=== PATIENT | female | born 1985 | race Caucasian/White ===

== ENCOUNTER 2017-01-25 10:14 | Emergency (ER) | payer OTHER ==
[~2017-01-25] VITALS: Ht 167.6 cm; Wt 57.2 kg
[~2017-01-25 10:14] MED LIST: BUPROPION HCL100 M3 PO; CLONAZEPAM0.5 M2 PO; CLONAZEPAM1 M2 PO; CYCLOBENZAPRINE10 M1 PO; ESCITALOPRAM OX20 MG PO; FLUTICASONE PRO16 GM NASB; IMITREX50 M1 PO; LYRICA150 M1 PO; MOBIC15 MG PO; MULTI-DAY VITA1 EACH PO; OXYCODONE-ACET1 EACH PO; PERCOCET 10-321 EACH PO; ROXICODONE5 M1 PO; TRAMADOL HCL50 M1 PO; TRAMADOL HCL50 MG PO; TRAZODONE HCL50 M1 PO; VALACYCLOVIR1000 MG PO; VIBRAMYCIN 100100 MG PO; ZOFRAN ODT4 M1 SL; ZOLPIDEM TARTRAT5 M1 PO
[2017-01-25 10:24] VITALS: BP 105/73
== END 2017-01-25 11:18 | disposition admitted as inpatient to this hospital (09) ==
LOC: ERH 10:14
DX: R10.9 Unspecified abdominal pain (principal)

== ENCOUNTER 2017-01-25 13:35 | Emergency (ER) | payer OTHER ==
[~2017-01-25] VITALS: Ht 167.6 cm; Wt 56.7 kg
--- NOTE | 2017-01-25 15:21 | ED GI/GU/ABDOMINAL COMPLAINT ---
History of Present Illness General Chief Complaint: Abdominal Pain/Flank Pain Stated Complaint: RUQ ABD PAIN Source: patient, old records Exam Limitations: no limitations Vital Signs & Intake/Output Vital Signs & Intake/Output ED Intake and Output 01/26 0000 01/25 1200 Intake Total Output Total Balance Patient 125 lb Weight Allergies Coded Allergies: No Known Allergies (04/23/16) Reconcile Medications Bupropion HCl (Bupropion HCl Sr) 100 MG TABLET.ER 1 TAB PO QAM MENTAL HEALTH (Reported) Clonazepam 1 MG TABLET 1 TAB PO TIDPRN PRN ANXIETY (Reported) Cyclobenzaprine HCl 10 MG TABLET 1 TAB PO TID PRN MUSCLE RELAXER (Reported) Fluticasone Propionate 16 GM SPRAY.SUSP 2 SPRAY NASB DAILY ALLERGIES ( Reported) Multivitamin (Multi-Day Vitamins) 1 EACH TABLET 1 TAB PO BID SUPPLEMENT ( Reported) Ondansetron (Zofran Odt) 4 MG TAB.RAPDIS 1 TAB SL TID Nausea and Vomiting Pregabalin (Lyrica) 150 MG CAPSULE 1 CAP PO BID FIBROMYALGIA (Reported) Sumatriptan Succinate (Imitrex) 50 MG TABLET 1 TAB PO AD PRN MIGRAINES ( Reported) Tramadol HCl 50 MG TABLET 1-2 TAB PO Q6H PRN FIBROMYALGIA (Reported) Trazodone HCl 50 MG TABLET 1 TAB PO PRN SLEEP (Reported) Valacyclovir HCl (Valacyclovir) 1,000 MG TABLET 1 TAB PO DAILY ANTIVIRAL ( Reported) Triage Note: PT WAS HERE EARLIER, BROUGHT BY HER FRIEND FOR RUQ PAIN, PTS FRIEN STATED THAT PT HAS A DRUG PROBLEM AND TOOK ALL MEDS OUT OF PTS BAG EARLIER AND LEFT WITH THEM DUE TO PT WAS TRYING TO TAKE THEM WHILE IN WAITING ROOM. PT COMPLAINS OF 10/10 RUQ PAIN AND STATES THAT SHE NEEDS IV DILAUDID DUE TOITS THE ONLY THING THAT WORKS FOR HER. PT LEFT EARLIER DUE TO SHE DID NOT WANT TO WAIT FOR ROOM. Triage Nurses Notes Reviewed? yes ? N Is pt currently ? No Onset: Gradual Duration: week(s):, constant Timing: recent history Quality/Severity: aching, mild, moderate Severity Numbers: 6 Location: epigastric Radiation: RUQ Activities at Onset: none No Modifying Factors: none Associated Symptoms: DENIES HPI: 31-year-old female with past history of cholecystectomy, chronic right upper quadrant pain and known history of dilated biliary duct for which she states she has not sought care or followed up as was recommended presents to the ER for evaluation complaining of persistent upper quadrant right sided epigastric pain. The patient was seen here earlier this week. She states on arrival "I am only here for one thing, the only thing that helps with this pain is IV Dilaudid" the patient appears to be intoxicated at this time discussed with her plan of care, and she has no other history of abdominal surgeries. No fever no chills no nausea no vomiting. She denies alcohol or other drug use. Triage note noted that the patient's friend took all of her pain medication after she attempted to take it in the waiting room area she then proceeded to leave the ER prior to being evaluated earlier this morning and came back for which she is now being seen. No difficulty tolerating eating or drinking (ARMANDO KAPADIA) Past History Travel History Traveled to [place] past 21 day No Medical History Any Pertinent Medical History? see below for history Neurological: NONE EENT: NONE Cardiovascular: NONE Respiratory: NONE Gastrointestinal: NONE Hepatic: NONE Renal: NONE Musculoskeletal: fibromyalgia Psychiatric: anxiety, depression, FIBROMYALGIA Endocrine: NONE Blood Disorders: NONE Cancer(s): NONE HOME ADMINISTRATOR/Reproductive: NONE History of CDIFF: No Surgical History Surgical History: cholecystectomy Psychosocial History What is your primary language Armenian Tobacco Use: Never used ETOH Use: denies use Illicit Drug Use: denies illicit drug use Family History Family History, If Any: MOTHER FH: diabetes mellitus Hx Contributory? No (ARMANDO KAPADIA) Review of Systems Review of Systems Constitutional: Reports: see HPI. Comments Review of systems: See HPI, All other systems negative. Constitutional, no chills no fever, no malaise HEENT: No visual changes no sore throat no congestion, Cardiovascular: No chest pain , no palpitation , Skin: no rashes, no change in skin Respiratory: No dyspnea no cough no sputum GI: No nausea no vomiting, no diarrhea, no bloating/constipation : No dysuria Muscle skeletal: No joint pain, , no back pain, no neck pain, Neurologic: No numbness no headache Psych: No stress Heme/endocrine: No bruising Immunology: No lymphadenopathy (ARMANDO KAPADIA) Physical Exam Physical Exam General Appearance: well developed/nourished, awake Gastrointestinal: soft, tenderness Comments: Well-developed well-nourished person in no acute distress HEENT: Normal EENT exam; PERRL, EOMI, HEAD is atraumatic. moist mucous membranes. Neck: Supple, normal range of motion Back:Full range of motion Cardiovascular: Regular rate and rhythms no murmurs rubs Respiratory: Chest nontender.There were no bony deformities, no asymmetry. No respiratory distress. Patient speaking in full complete sentences. Breath sounds clear to auscultation bilaterally: NO W/R/R Abdomen: Soft, nontender nondistended, no appreciable organomegaly. Normal bowel sounds. No rebound/guarding, No ascites. Extremity: No edema, full range of motion of extremities Neuro: Alert oriented x3, motor sensory normal, There were no obvious focal neurologic abnormalities. Skin: No appreciable rash on exposed skin, skin is warm and dry. No jaundice Psych: Mood and affect is normal, memory and judgment is normal. Core Measures ACS in differential dx? No Severe Sepsis Present: No Septic Shock Present: No (XIANG BINGHAM,ARMANDO) Progress Differential Diagnosis: biliary colic, bowel obstruction, diverticulitis, intrauterine , kidney stone, pancreatitis, peptic ulcer, PUD/GERD, perforated viscous, CHOLANGITIS, CHOLEDOCHOLITHIASIS Diagnostic Imaging: Viewed by Me: Ultrasound. Discussed w/RAD: Ultrasound. Radiology Impression: PATIENT: DANIELA LARA PRESENT AGE: 31 PATIENT ACCOUNT NO: [id number] : 87 LOCATION: [facility] ORDERING PHYSICIAN: ARMANDO BINGHAM SERVICE DATE: 01/25/17163 EXAM TYPE: US - US-LIMITED ABDOMEN EXAMINATION: US ABDOMEN LIMITED CLINICAL INFORMATION: Right upper quadrant abdominal pain.. COMPARISON: Right upper quadrant ultrasound abdomen 01/20/2016. MR abdomen 01/28/2016. CT scan abdomen pelvis 01/21/2017 TECHNIQUE: Real-time imaging of the right upper quadrant abdominal viscera. Color Doppler exam utilized. FINDINGS: PANCREAS: Normal. LIVER: Normal. The liver demonstrates normal size, contour and echogenicity. No focal lesion or intrahepatic biliary duct dilatation. GALLBLADDER: Status post cholecystectomy. COMMON BILE DUCT: Normal in caliber measuring 0.7 cm in diameter. This is unchanged since prior MR abdomen 01/28/2016. No stone identified in the visualized portions of the duct. RIGHT KIDNEY: Normal. No hydronephrosis. No renal calculi or focal parenchymal lesions. The kidney measures 10.5 cm in maximum dimension. FREE FLUID: None. IMPRESSION: No acute change right upper quadrant ultrasound. Status post cholecystectomy. CBD measures 0.7 cm in diameter which is unchanged since MR abdomen of 01/20/2016. No intrahepatic bile duct dilatation. DICTATED BY: SERGEY HERNANDEZ MD DATE/TIME DICTATED:01/25/171643 TERMINAL GAUGER:LESLEY DATE/TIME TRANSCRIBED:01/25/171643 CONFIDENTIAL, DO NOT COPY WITHOUT APPROPRIATE AUTHORIZATION. <Electronically signed in Other Vendor System> SIGNED BY: SERGEY HERNANDEZ MD 01/25/17 1733 Initial ED EKG: none (ARMANDO KAPADIA) Plan of Care: Orders Procedure Date/time Status URINE DRUG SCREEN FOR ER ONLY 01/25 1518 Complete ACETOMINOPHEN 01/25 1501 Complete LIPASE 01/25 1501 Complete ETHANOL 01/25 1501 Complete COMPREHENSIVE METABOLIC PANEL 01/25 1501 Complete CBC WITHOUT DIFFERENTIAL 01/25 1501 Complete AMYLASE 01/25 1501 Complete Laboratory Tests 01/25/17 1525: Urine Opiates Screen 162.00, Methadone Screen 48, Barbiturate Screen < 60, Ur Phencyclidine Scrn 6.50, Amphetamines Screen < 100, U Benzodiazepines Scrn 224 H, Urine Cocaine Screen < 50, Urine Cannabis Screen < 5.00 01/25/17 1515: Anion Gap 9, Estimated GFR > 60, BUN/Creatinine Ratio 11.4, Glucose 99, Calcium 8.8, Total Bilirubin 1.1, AST 529 H, ALT 403 H, Alkaline Phosphatase 188 H, Total Protein 6.8, Albumin 4.4, Globulin 2.4, Albumin/Globulin Ratio 1.8, Amylase 34, Lipase 66, CBC w Diff MAN DIFF ORDERED, RBC 4.11 L, MCV 93.7, MCH 32.8 H, RDW 12.4, MPV 7.5, Gran % 83.9 H, Lymphocytes % 7.5 L, Monocytes % 8.3, Eosinophils % 0.2, Basophils % 0.1, Absolute Granulocytes 2.7, Absolute Lymphocytes 0.2 L, Absolute Monocytes 0.3, Absolute Eosinophils 0, Absolute Basophils 0, Platelet Estimate DECREASED, Normocytic RBCs VERIFIED, Normochromic RBCs VERIFIED, PUBS MCHC 35.0, Acetaminophen < 10.0 L, Serum Alcohol < 10.0 Old records reviewed including the patient's CAT scan from over the weekend was reviewed ultrasound ordered case discussed with Dr. Saleh patient states that "I am only here for pain management I need IV Dilaudid" patient appears intoxicated discussed with her given her opiate level in her drug screen that she will not receive any narcotics here at this time we'll medicate her with IV Toradol which she is agreeing and willing to do at this time. Case discussed with Dr. Saleh regarding the patient's lab results. I spoke with the patient at length regarding all of her results her exam remains unremarkable she is afebrile in no white count elevation. LFTs are trending upwards I discussed with her only that she needs to have close follow-up with GI return precautions were discussed at least she feels comfortable with this plan CT ABD/PELVIS 01/16 IMPRESSION: Status post cholecystectomy. The common bile duct is dilated to 1.2 cm, increased from the prior MRCP 01/28/2016 at which time it measured 0.9 cm. No definite radiopaque obstructing choledocholithiasis seen. Consider ERCP or MRCP for further evaluation. (ARMANDO KAPADIA) Departure Departure Time of Disposition: 1737 Disposition: HOME OR SELF CARE Condition: Stable Clinical Impression Primary Impression: Transaminitis Secondary Impressions: Dilated bile duct Referrals: EARL SALCIDO,LORELEI SHEPHERD MD,HEATHER (PCP/Family) Additional Instructions: Follow-up with gastrioenterologist Dr. ELLIOTT as you'll need outpatient workup regarding her elevated liver tests and dilated bile.. [place] diet no fatty spicy greasy foods. Return if you have persistent fevers nausea vomiting yellowing of her skin or any other concerns. Departure Forms: Customer Survey General Discharge Information (ARMANDO KAPADIA) PA/HEALTHCARE PROJECT MANAGER Co-Sign Statement Statement: ED Attending supervision documentation- [] I saw and evaluated the patient. I have also reviewed all the pertinent lab results and diagnostic results. I agree with the findings and the plan of care as documented in the PA's/HEALTHCARE PROJECT MANAGER's documentation. [X] I have reviewed the ED Record and agree with the PA's/HEALTHCARE PROJECT MANAGER's documentation. [] Additions or exceptions (if any) to the PAs/HEALTHCARE PROJECT MANAGER's note and plan are summarized below: [] (TAI SALCIDO,CATHERINE)
[2017-01-25 15:26] LABS: ABSOLUTE BASOPHIL COUNT 0 /CUMM (0.0-0.2); ABSOLUTE EOSINOPHIL COUNT 0 /CUMM (0.0-0.7); ABSOLUTE GRANULOCYTE CT 2.7 /CUMM (1.4-6.5); ABSOLUTE LYMPH COUNT 0.2 /CUMM (1.2-3.4); ABSOLUTE MONOCYTE COUNT 0.3 /CUMM (0.10-0.60); BASOPHIL % 0.1 % (0.0-2.0); EOSINOPHIL % 0.2 % (0-5); GRANULOCYTE % 83.9 % (42.2-75.2); HEMATOCRIT 38.5 % (37-47); MEAN CORPUSCULAR HGB 32.8 PG (27.0-31.0); MEAN CORPUSCULAR VOLUME 93.7 FL (81.0-99.0); MEAN PLATELET VOLUME 7.5 FL (7.4-10.4); PLATELET COUNT 114 /CUMM (130-400); RBC DISTRIBUTION WIDTH 12.4 % (11.5-14.5); RED BLOOD CELL CT 4.11 /CUMM (4.20-5.40); WHITE BLOOD CELL COUNT 3.3 /CUMM (4.8-10.8)
--- NOTE | 2017-01-25 17:33 | ULTRASOUND REPORT ---
EXAMINATION: US ABDOMEN LIMITED CLINICAL INFORMATION: Right upper quadrant abdominal pain.. COMPARISON: Right upper quadrant ultrasound abdomen 01/20/2016. MR abdomen 01/28/2016. CT scan abdomen pelvis 01/21/2017 TECHNIQUE: Real-time imaging of the right upper quadrant abdominal viscera. Color Doppler exam utilized. FINDINGS: PANCREAS: Normal. LIVER: Normal. The liver demonstrates normal size, contour and echogenicity. No focal lesion or intrahepatic biliary duct dilatation. GALLBLADDER: Status post cholecystectomy. COMMON BILE DUCT: Normal in caliber measuring 0.7 cm in diameter. This is unchanged since prior MR abdomen 01/28/2016. No stone identified in the visualized portions of the duct. RIGHT KIDNEY: Normal. No hydronephrosis. No renal calculi or focal parenchymal lesions. The kidney measures 10.5 cm in maximum dimension. FREE FLUID: None. IMPRESSION: No acute change right upper quadrant ultrasound. Status post cholecystectomy. CBD measures 0.7 cm in diameter which is unchanged since MR abdomen of 01/20/2016. No intrahepatic bile duct dilatation.
[2017-01-25 17:41] VITALS: BP 116/84
== END 2017-01-25 18:11 ==
LOC: ERH 13:35
PROVIDERS: Physician Assistant Medical
DX: R74.0 Nonspecific elevation of levels of transaminase and lactic acid dehydrogenase [LDH] (principal); K83.8 Other specified diseases of biliary tract
CPT/HCPCS: 80307; 96374; G0480; J1885

== ENCOUNTER 2017-01-27 09:26 | Emergency (ER) | payer OTHER ==
[~2017-01-27] VITALS: Ht 167.6 cm; Wt 56.7 kg
--- NOTE | 2017-01-27 10:14 | ED GI/GU/ABDOMINAL COMPLAINT ---
History of Present Illness General Chief Complaint: Abdominal Pain/Flank Pain Stated Complaint: BIBA FOR ABD PAIN Source: patient, old records Exam Limitations: no limitations Vital Signs & Intake/Output Vital Signs & Intake/Output Vital Signs Date Time Temp Pulse Resp B/P B/P Pulse O2 O2 Flow FiO2 Mean Ox Delivery Rate 01/27 1140 96.2 98 22 116/81 94 Room Air 01/27 0940 96.4 95 20 117/83 100 Room Air Room Air Allergies Coded Allergies: No Known Allergies (04/23/16) Reconcile Medications Bupropion HCl (Bupropion HCl Sr) 100 MG TABLET.ER 1 TAB PO QAM MENTAL HEALTH (Reported) Clonazepam 1 MG TABLET 1 TAB PO TIDPRN PRN ANXIETY (Reported) Cyclobenzaprine HCl 10 MG TABLET 1 TAB PO TID PRN MUSCLE RELAXER (Reported) Fluticasone Propionate 16 GM SPRAY.SUSP 2 SPRAY NASB DAILY ALLERGIES ( Reported) Multivitamin (Multi-Day Vitamins) 1 EACH TABLET 1 TAB PO BID SUPPLEMENT ( Reported) Ondansetron (Zofran Odt) 4 MG TAB.RAPDIS 1 TAB SL TID Nausea and Vomiting Pregabalin (Lyrica) 150 MG CAPSULE 1 CAP PO BID FIBROMYALGIA (Reported) Sumatriptan Succinate (Imitrex) 50 MG TABLET 1 TAB PO AD PRN MIGRAINES ( Reported) Tramadol HCl 50 MG TABLET 1-2 TAB PO Q6H PRN FIBROMYALGIA (Reported) Trazodone HCl 50 MG TABLET 1 TAB PO PRN SLEEP (Reported) Valacyclovir HCl (Valacyclovir) 1,000 MG TABLET 1 TAB PO DAILY ANTIVIRAL ( Reported) Triage Note: PT RETURNS TO ED WITH C/O "SEVERE UPPER RIGHT ABD PAIN" "THEY DIARRHEA STARTED 2 DAYS AGO, IT'S BRIGHT RED BLOOD". "CAN'T TAKE MY TRAMADOL OR MY BENZOS, SO I AM PROBABLY WITHDRAWING FROM THAT". Triage Nurses Notes Reviewed? yes LMP (ages 10-50): unknown ? N Is pt currently ? No Onset: Abrupt Duration: week(s): (1), constant, continues in ED, getting worse Timing: single episode today Quality/Severity: cramping, fullness, sharpness, severe Severity Numbers: 10 Location: right upper quadrant Radiation: no radiation Activities at Onset: none Prior Abdominal Problems: similar symptoms Past Sexual History: Unobtainable at this time No Modifying Factors: none Modifying Factors: Improves With: defecating. Worsens With: lying down, movement, palpation, rest. HPI: 31-year-old female with a past medical history of depression, anxiety, fibromyalgia and status post cholecystectomy with common bile duct dilation presents complaining of right upper quadrant pain and bloody diarrhea. Patient was seen in the emergency department on 2 other occasions for the same thing. He is given a referral to GI which she has the appointment today at 1 PM. She went in early because she was having bloody diarrhea and they were not able to see her and told to come to the emergency department instead. She reports that the pain in her right upper quadrant started about one week ago and went away 2 days ago before returning again. This is the same type of pain the patient was seen for earlier in the week. She describes the pain as cramping that is intermittent with sharp. It does not radiate and she rates the pain as a 10 out of 10. She's been taking tramadol without any improvement. She repeatedly states that the only thing that improves the pain is IV Dilaudid. Patient states that she noticed bloody diarrhea for the first time last night. She states that the diarrhea is very watery with bright red blood. She denies any pain with bowel movements and states that she feels some relief after having a bowel movement. No recent travel, sick contacts, constipation, back pain, urinary symptoms, fevers, dizziness or any other associated symptoms. She does not take blood thinners. (NAINA DEWITT PA-C) Past History Travel History Traveled to [place] past 21 day No Medical History Any Pertinent Medical History? see below for history Neurological: NONE EENT: NONE Cardiovascular: NONE Respiratory: NONE Gastrointestinal: NONE Hepatic: NONE Renal: NONE Musculoskeletal: fibromyalgia Psychiatric: anxiety, depression, FIBROMYALGIA Endocrine: NONE Blood Disorders: NONE Cancer(s): NONE PRODUCTION COUNTER/Reproductive: NONE History of CDIFF: No Surgical History Surgical History: cholecystectomy Psychosocial History What is your primary language Frisian Tobacco Use: Quit >30 days ago ETOH Use: denies use Illicit Drug Use: denies illicit drug use Family History Family History, If Any: MOTHER FH: diabetes mellitus Hx Contributory? No (NAINA DEWITT PA-C) Review of Systems Review of Systems Constitutional: Reports: no symptoms. EENTM: Reports: no symptoms. Respiratory: Reports: no symptoms. Cardiovascular: Reports: no symptoms. GI: Reports: see HPI, abdominal pain, diarrhea, bloody stool, changes in stool. Genitourinary: Reports: no symptoms. Musculoskeletal: Reports: no symptoms. Skin: Reports: no symptoms. Neurological/Psychological: Reports: no symptoms. Hematologic/Endocrine: Reports: no symptoms. Immunologic/Allergic: Reports: no symptoms. All Other Systems: Reviewed and Negative (RENATE PA-Juan,NAINA) Physical Exam Physical Exam General Appearance: well developed/nourished, alert, awake, anxious, mild distress Head: atraumatic, normal appearance Eyes: Bilateral: normal appearance, PERRL, EOMI, normal inspection. Ears, Nose, Throat, Mouth: hearing grossly normal, moist mucous membrane, Tympanic normal Neck: normal inspection, supple, full range of motion, no midline tenderness Respiratory: normal breath sounds, chest non-tender, no respiratory distress, lungs clear Cardiovascular: regular rate/rhythm, normal peripheral pulses Peripheral Pulses: 2+ radial (R), 2+ radial (L) Gastrointestinal: normal bowel sounds, soft, no organomegaly, tenderness (ruq) Rectal: normal inspection, normal rectal tone, heme negative stool, NO GROSS BLOOD, HEME POSITIVE BROWN STOOL Back: normal inspection, normal range of motion, no vertebral tenderness Extremities: normal range of motion, no ligament instability Neurologic/Psych: no motor/sensory deficits, awake, alert, oriented x 3, normal gait, normal mood/affect Skin: intact, normal color, warm/dry Core Measures ACS in differential dx? No Severe Sepsis Present: No Septic Shock Present: No (RENATE BINGHAM-Juan,NAINA) Progress Differential Diagnosis: appendicitis, biliary colic, bowel obstruction, cholecystitis, diverticulitis, endometritis, gastritis, hemorrhoids, inflamm bowel dis, kidney stone, pancreatitis, PUD/GERD, SBO, UTI/pyelo Plan of Care: Orders Procedure Date/time Status LACTIC ACID 01/27 1328 Active MISTAKE 01/27 1033 Active URINE 01/27 1028 Complete URINE DRUG SCREEN FOR ER ONLY 01/27 1028 Complete URINALYSIS 01/27 1028 Complete PROTHROMBIN TIME 01/27 1028 Complete LIPASE 01/27 1028 Complete LACTIC ACID 01/27 1028 Complete C-REACTIVE PROTEIN 01/27 1028 Complete COMPREHENSIVE METABOLIC PANEL 01/27 1028 Complete CBC WITHOUT DIFFERENTIAL 01/27 1028 Complete AMYLASE 01/27 1028 Complete TYPE & SCREEN (NOT X-MATCH) 01/27 1028 Complete Laboratory Tests 01/27/17 1107: Urine Opiates Screen < 100.00, Methadone Screen < 40, Barbiturate Screen < 60, Ur Phencyclidine Scrn < 6.00, Amphetamines Screen < 100, U Benzodiazepines Scrn < 85, Urine Cocaine Screen < 50, Urine Cannabis Screen < 5.00, Urine Color STRAW , Urine Clarity CLEAR, Urine pH 7.5, Ur Specific [place] 1.010, Urine Protein NEG, Urine Ketones NEG, Urine Nitrite NEG, Urine Bilirubin NEG, Urine Urobilinogen 0.2, Ur Leukocyte Esterase NEG, Ur Microscopic EXAM NOT REQUIRED, Urine Hemoglobin NEG, Urine Glucose NEG, Urine Test NEGATIVE 01/27/17 1042: Anion Gap 9, Estimated GFR > 60, BUN/Creatinine Ratio 13.3, Glucose 75, Lactic Acid 1.2, Calcium 8.7, Total Bilirubin 0.5, AST 77 H, ALT 193 H, Alkaline Phosphatase 127 H, C-Reactive Prot, Quant 0.8, Total Protein 6.0 L, Albumin 3.7, Globulin 2.3, Albumin/Globulin Ratio 1.6, Amylase 48, Lipase 221, PT 11.4, INR 1.09, CBC w Diff NO MAN DIFF REQ, RBC 4.07 L, MCV 92.7, MCH 33.0 H, RDW 12.7, MPV 7.4, Gran % 66.3, Lymphocytes % 22.5, Monocytes % 10.1 H, Eosinophils % 0.5, Basophils % 0.6, Absolute Granulocytes 1.5, Absolute Lymphocytes 0.5 L, Absolute Monocytes 0.2, Absolute Eosinophils 0, Absolute Basophils 0, PUBS MCHC 35.6 Patient seen and evaluated. Patient's friend had told a nurse at one of her previous visits that she is a drug addict and is addicted to opiate pain medications and benzodiazepines. Patient repeatedly asked for IV Dilaudid and for benzos. Patient will be given fluid and Toradol. She'll have repeat blood work. 11:46 AM: Patient's blood work especially LFTs are significantly improved. She does not have an elevated white blood cell count or elevated lipase. Her CRP is within normal limits. Alkaline phosphatase is improved. Patient has an appointment with Dr. Vidal today at . Dr. Vidal was paged in order to inform him about the situation. Patient is feeling better after fluids and Toradol. She is asking to leave. Patient will be discharged with instructions to continue tramadol as needed for pain. Follow-up with Dr. Vidal today at [address] Zaman came down and spoke with Dr. Saleh. He recommends an MRCP. He does not recommend giving any narcotics. Spoke with patient about recommendations. She does not want to stay for an MRCP. Advised that this may result negative health effects that may include . Patient understands these risks and still wants to leave. AMA form signed. Advised patient to call Dr. Zaman follow-up with him as an outpatient to complete the MRCP then. Reviewed all results of today's visit with patient. Patient is nontoxic-appearing and agrees with the plan. Case discussed with Dr. Saleh she agrees with the plan. (NAINA DEWITT PA-C) Initial ED EKG: none (NAINA DEWITT PA-C) Departure Departure Disposition: LEFT AGAINST MEDICAL ADVICE Condition: Stable Clinical Impression Primary Impression: RUQ pain Referrals: JOAO SALCIDO,HEATHER (PCP/Family) Additional Instructions: Your leaving AGAINST MEDICAL ADVICE. It is recommended that he stay and complete the MRCP. Not completing this test may result in negative health effects that could include . Rest and drink plenty of fluids. Use ibuprofen 800 mg every 8 hours as needed for pain. Tramadol as needed for severe pain only. Follow-up with Dr. Zaman today at 1 PM. Return to the emergency department with any concerns. Departure Forms: Customer Survey General Discharge Information (NAINA DEWITT PA-C) PA/ASSESSMENT TECHNICIAN Co-Sign Statement Statement: ED Attending supervision documentation- [] I saw and evaluated the patient. I have also reviewed all the pertinent lab results and diagnostic results. I agree with the findings and the plan of care as documented in the PA's/ASSESSMENT TECHNICIAN's documentation. [X] I have reviewed the ED Record and agree with the PA's/ASSESSMENT TECHNICIAN's documentation. [] Additions or exceptions (if any) to the PAs/ASSESSMENT TECHNICIAN's note and plan are summarized below: [] (TAI SALCIDO,CATHERINE)
[2017-01-27 10:58] LABS: ABSOLUTE BASOPHIL COUNT 0 /CUMM (0.0-0.2); ABSOLUTE EOSINOPHIL COUNT 0 /CUMM (0.0-0.7); ABSOLUTE GRANULOCYTE CT 1.5 /CUMM (1.4-6.5); ABSOLUTE LYMPH COUNT 0.5 /CUMM (1.2-3.4); ABSOLUTE MONOCYTE COUNT 0.2 /CUMM (0.10-0.60); BASOPHIL % 0.6 % (0.0-2.0); EOSINOPHIL % 0.5 % (0-5); GRANULOCYTE % 66.3 % (42.2-75.2); HEMATOCRIT 37.8 % (37-47); MEAN CORPUSCULAR HGB CONC 35.6 G/DL (33.0-37.0); MEAN CORPUSCULAR VOLUME 92.7 FL (81.0-99.0); MEAN PLATELET VOLUME 7.4 FL (7.4-10.4); PLATELET COUNT 118 /CUMM (130-400); RBC DISTRIBUTION WIDTH 12.7 % (11.5-14.5); RED BLOOD CELL CT 4.07 /CUMM (4.20-5.40); WHITE BLOOD CELL COUNT 2.3 /CUMM (4.8-10.8)
[2017-01-27 11:04] LABS: PT 11.4 SEC (9.4-12.5)
[2017-01-27 11:40] VITALS: BP 116/81
== END 2017-01-27 12:44 | disposition left against medical advice (07) ==
LOC: ERH 09:26
PROVIDERS: Physician Assistant Medical
DX: R10.11 Right upper quadrant pain (principal)
CPT/HCPCS: 80307; 81003; 81025; 96374; J1885

== ENCOUNTER 2017-08-19 20:03 | Emergency (ER) | payer OTHER ==
[~2017-08-19] VITALS: Ht 167.6 cm; Wt 61.2 kg
[2017-08-19 20:21] VITALS: BP 112/78
[2017-08-19] MEDS ORDERED: AMOXICILLIN875 M1 PO (20:40)
[2017-08-19] MEDS ORDERED: BACTRIM DS TAB1 EACH PO (20:40)
--- NOTE | 2017-08-19 20:40 | ED UPPER/LOWER EXTREMITY COMPL ---
History of Present Illness General Chief Complaint: General Adult Stated Complaint: ABSCESS ON L ARM PER PT Source: patient Exam Limitations: no limitations Vital Signs & Intake/Output Vital Signs & Intake/Output Vital Signs Date Time Temp Pulse Resp B/P B/P Pulse O2 O2 Flow FiO2 Mean Ox Delivery Rate 08/19 2020 96.7 91 18 112/78 98 Room Air Allergies Coded Allergies: No Known Allergies (04/23/16) Reconcile Medications Amoxicillin 875 MG TABLET 1 TAB PO BID cellulitis Bupropion HCl (Bupropion HCl Sr) 100 MG TABLET.ER 1 TAB PO QAM MENTAL HEALTH (Reported) Clonazepam 1 MG TABLET 1 TAB PO TIDPRN PRN ANXIETY (Reported) Cyclobenzaprine HCl 10 MG TABLET 1 TAB PO TID PRN MUSCLE RELAXER (Reported) Fluticasone Propionate 16 GM SPRAY.SUSP 2 SPRAY NASB DAILY ALLERGIES ( Reported) Multivitamin (Multi-Day Vitamins) 1 EACH TABLET 1 TAB PO BID SUPPLEMENT ( Reported) Ondansetron (Zofran Odt) 4 MG TAB.RAPDIS 1 TAB SL TID Nausea and Vomiting Pregabalin (Lyrica) 150 MG CAPSULE 1 CAP PO BID FIBROMYALGIA (Reported) Sulfamethoxazole/Trimethoprim (Bactrim Ds Tablet) 800 MG-160 MG TABLET 1 TAB PO BID cellulitis Sumatriptan Succinate (Imitrex) 50 MG TABLET 1 TAB PO AD PRN MIGRAINES ( Reported) Tramadol HCl 50 MG TABLET 1-2 TAB PO Q6H PRN FIBROMYALGIA (Reported) Trazodone HCl 50 MG TABLET 1 TAB PO PRN SLEEP (Reported) Valacyclovir HCl (Valacyclovir) 1,000 MG TABLET 1 TAB PO DAILY ANTIVIRAL ( Reported) Triage Note: PT FROM HOME C/O LFA CELLULITIS. PT STATES USE OF IV DRUG USE LAST NIGHT "I USED 5 BAGS OF HEROIN LAST NIGHT, MISSED THE VEIN, WHICH HAPPENS ALL THE TIME NOT A BIG DEAL, BUT NOW ITS BLOWN UP AND ITS RED, TENDER, SWOLLEN, I THINK I NEED ANTIOBIOTICS" PTS HAS A BASEBALL SIZE RED SWOLLEN, WARM TO TOUCH AREA ON LFA NOTED, PTS VSS, AFEBRILE IN TRIAGE. NO OTHER COMPLAINTS Triage Nurses Notes Reviewed? yes Onset: Abrupt Duration: day(s): (2), constant Timing: recent history Severity: moderate, severe Pain/Injury Location: Left: Forearm. No Modifying Factors: none : No Patient currently breastfeeds: No HPI: 32-year-old female comes into emergency room with redness and swelling to the left forearm. Symptoms began after she injected some IV drugs. This was couple days ago. She denies any fever chills vomiting. Denies wanting any detox. Denies any other associated symptoms. Comes in for further evaluation. Past History Travel History Traveled to [place] past 21 day No Medical History Any Pertinent Medical History? see below for history Neurological: NONE EENT: NONE Cardiovascular: NONE Respiratory: NONE Gastrointestinal: NONE Hepatic: NONE Renal: NONE Musculoskeletal: fibromyalgia Psychiatric: anxiety, depression, FIBROMYALGIA Endocrine: NONE Blood Disorders: NONE Cancer(s): NONE TRUCKLOAD OWNER OPERATOR/Reproductive: NONE History of CDIFF: No Surgical History Surgical History: cholecystectomy Psychosocial History What is your primary language Martiniquais Tobacco Use: Current Daily Use Daily Tobacco Use Amount/Type: => 5 Cigarettes daily Illicit Drug Use: heroin Family History Family History, If Any: MOTHER FH: diabetes mellitus Hx Contributory? No Review of Systems Review of Systems Constitutional: Reports: no symptoms. EENTM: Reports: no symptoms. Respiratory: Reports: no symptoms. Cardiovascular: Reports: no symptoms. Gastrointestinal/Abdominal: Reports: no symptoms. Genitourinary: Reports: no symptoms. Musculoskeletal: Reports: no symptoms. Skin: Reports: see HPI. Neurological/Psychological: Reports: no symptoms. Hematologic/Endocrine: Reports: no symptoms. Immunological: Reports: no symptoms. All Other Systems: Reviewed and Negative Physical Exam Physical Exam General Appearance: well developed/nourished, mild distress Head: atraumatic Eyes: Bilateral: normal appearance. Ears, Nose, Throat: normal ENT inspection, hearing grossly normal Neck: normal inspection Cardiovascular/Respiratory: no respiratory distress Back: normal inspection Hand Left: Swelling and erythema to left forearm, radial pulse intact, semiconductor development technician strength intact, Neurologic/Tendon: normal sensation, normal motor functions, normal tendon functions, responds to pain, no evidence tendon injury, no pulse deficit Skin: intact, normal color, warm/dry Progress Differential Diagnosis: cellulitis, contusion, fracture, septic arthritis, sprain, tendon injury Plan of Care: 08/19/2017 9:07:27 PM No current evidence of abscess. Patient started on oral antibiotics. Warm compresses. Return if any other concerns. Have recheck in 3 days. Departure Departure Disposition: HOME OR SELF CARE Condition: Stable Clinical Impression Primary Impression: Cellulitis of left forearm Referrals: Abisai SALCIDO,Mary (PCP/Family) Additional Instructions: Take Bactrim and amoxicillin as prescribed. Warm compresses. Recheck in 3 days. Return if any other concerns worsening symptoms. Please go over all results of today's visit with your primary care doctor. Contact your primary care doctor to let them know you were here in the emergency room. There may be nonspecific findings which may not be related to your visit today here in the emergency room but may require further evaluation and chronic monitoring by your primary care doctor. If you had a laceration today the chance of foreign body always remains. You should follow-up with your primary care doctor for recheck in 3-5 days for a wound check. If you had an x-ray done there is a chance that a fracture could have been missed on initial read and you should follow-up with your primary care doctor for repeat x-rays if symptoms persist. If your blood pressure was elevated here in the emergency room please have rechecked by [facility] primary care doctor within the next 48. If you were prescribed a narcotic here in the emergency room or any type of controlled substances you're not allowed to drive while taking this medication or operate any type of heavy machinery. Narcotics can make you feel lightheaded dizziness nausea and can cause constipation. You may need to picker and packer a stool softener. Thank you for choosing [facility] emergency room. Please return to the emergency room immediately if you have any other concerns worsening of symptoms. Departure Forms: Customer Survey General Discharge Information Prescriptions: Current Visit Scripts Sulfamethoxazole/Trimethoprim (Bactrim Ds Tablet) 1 TAB PO BID #14 TAB Amoxicillin 1 TAB PO BID #14 TAB
== END 2017-08-19 20:55 ==
LOC: ERH 20:03
DX: L03.114 Cellulitis of left upper limb (principal)